=== PATIENT | male | born 1985 | race Caucasian/White ===

== ENCOUNTER → 2019-03-11 | Outpatient (CLI) | payer OTHER ==
--- NOTE | 2019-03-11 15:47 | MR ---
EXAMINATION TYPE: MR lumbar spine wo con DATE OF EXAM: 03/11/2019 COMPARISON: Outside MRI dated 12/04/2016 from submitted from [facility]. HISTORY: Low back pain TECHNIQUE: T1 and T2 axial and sagittal images of the lumbar spine are submitted. FINDINGS: There is no abnormal signal seen within the visualized spinal cord or paraspinal soft tissu es. Spinal canal somewhat congenitally diminished. Tiny renal cysts noted on the prior exam are not a s well-seen on today's exam. At L1-2 there is no disc herniation or canal stenosis. No foraminal encroachment. No degenerative dis c disease. At L2-3 there is no disc herniation or canal stenosis. No degenerative disc disease. Stable mild circ umferential disc bulging. There is very minimal effacement of the neural foramina but no nerve root c ontact. At L3-4 there is no degenerative disc disease. Mild hypertrophic change of the facets. Mild circumfer ential disc bulging without evidence of focal herniation is similar to the prior exam. There is borde rline central stenosis due to diminutive spinal canal in association with the disc circumferential di sc bulging and facet hypertrophy. At L4-5 there is loss of disc signal and annular tear with broad-based central disc herniation result ing in moderate compression of thecal sac and central stenosis. Hypertrophic change of the ligamentum flavum and facet joints contribute and there is bilateral moderate foraminal encroachment. Findings are similar to the prior exam. At L5-S1 there is no disc herniation or canal stenosis. No foraminal encroachment. No degenerative di sc disease. IMPRESSION: 1. A broad-based central disc protrusion or herniation L4-L5 with moderate compression thecal sac, bi lateral foraminal encroachment and central stenosis is similar to the prior exam and appearance. 2. 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 3. Mild circumferential disc bulging L3-L4 is similar to the prior exam. Borderline central stenosis.
== END | disposition home or self-care (01) ==
LOC: EDBD 03-02 09:45 → RADMRIMAIN 12:57
DX: M48.061 Spinal stenosis, lumbar region without neurogenic claudication (principal); M51.26 Other intervertebral disc displacement, lumbar region; M51.36 Other intervertebral disc degeneration, lumbar region
CPT/HCPCS: 72148

== ENCOUNTER → 2023-05-04 | Outpatient (CLI) | payer OTHER ==
--- NOTE | 2023-05-05 22:39 | MR ---
EXAMINATION TYPE: MR knee LT wo con DATE OF EXAM: 05/04/2023 COMPARISON: No radiographic correlation available HISTORY: 37-year-old male M25.562, Lt knee pain TECHNIQUE: Multiplanar, multisequence imaging of the left knee is performed without IV contrast. FINDINGS: The ACL, PCL, and MCL are intact. There is increased signal along the popliteus tendon and mild fluid within the popliteus tendon sheat h. Both medial and lateral menisci are intact. Tricompartmental articular cartilage volumes are maintained. Extensor mechanism is intact. Mild anterior soft tissue swelling. Mild edema within the suprapatellar fat pad and also within Hoffa's fat located inferior and lateral to the patella. Physiologic joint fluid with trace early Kauffman's cyst measuring 1.1 cm. Normal popliteal artery anatomy in muscle bulk. No suspicious bone marrow replacement. Some mild pura a within the lateral head gastrocnemius. IMPRESSION: 1. Some focal popliteus tendinosis. Otherwise, no cruciate/collateral ligament or meniscal tear. 2. Edema within the suprapatellar fat pad and also within Hoffa's fat inferior and lateral to the pat agueda. Findings can be seen with fat pad impingement syndrome. 3. Trace early Kauffman's cyst. 4. Some edema within the lateral head gastrocnemius. This could be edema reactive to altered biomecha nics or could represent a mild muscle strain.
== END | disposition home or self-care (01) ==
LOC: RADMRIMAIN 15:02
DX: M71.22 Synovial cyst of popliteal space [Baker], left knee (principal); R60.0 Localized edema